=== PATIENT | female | born 1990 | race Caucasian/White ===

== ENCOUNTER 2016-10-26 15:11 | Emergency (ER) | payer OTHER ==
[~2016-10-26] VITALS: Ht 160 cm; Wt 72.4 kg
[2016-10-26 15:14] VITALS: BP 150/78
[2016-10-26] MEDS ORDERED: IBUPROFEN 200 MG TABLET ONE (15:42)
[2016-10-26] MEDS ORDERED: IBUPROFEN 200 MG TABLET PO ONE (16:00)
== END 2016-10-26 16:10 | disposition home or self-care (01) ==
LOC: ED 15:55
DX: S90.212A Contusion of left great toe with damage to nail, initial encounter (principal); X58.XXXA Exposure to other specified factors, initial encounter; Y93.89 Activity, other specified; Y99.8 Other external cause status; Y92.89 Other specified places as the place of occurrence of the external cause
CPT/HCPCS: 11740

== ENCOUNTER 2017-07-25 18:50 | Emergency (ER) | payer OTHER ==
[~2017-07-25] VITALS: Ht 160 cm; Wt 74.2 kg
[2017-07-25 18:55] VITALS: BP 134/79
[2017-07-25] MEDS ORDERED: IBUPROFEN 200 MG TABLET ONE ×2 (19:58→19:59)
[2017-07-25] MEDS ORDERED: IBUPROFEN 200 MG TABLET PO ONE (20:00)
== END 2017-07-25 20:04 | disposition home or self-care (01) ==
LOC: ED 19:50
DX: S29.012A Strain of muscle and tendon of back wall of thorax, initial encounter (principal); W18.2XXA Fall in (into) shower or empty bathtub, initial encounter; Y93.E1 Activity, personal bathing and showering; Y92.89 Other specified places as the place of occurrence of the external cause; Y99.8 Other external cause status
CPT/HCPCS: 72072; 99284